=== PATIENT | female | born 1980 | race Caucasian/White ===

== ENCOUNTER 2018-11-10 00:19 | Emergency (ER) | payer OTHER, MEDICAID, SELFPAY ==
--- NOTE | 2018-11-10 00:21 | ED.PREGNANCY ---
HPI - General Chief complaint: OB/Uterine Contractions Stated complaint: about 6 weeks thinks miscarrying Time Seen by Provider: 11/10/18 00:20 Source: patient and family Mode of arrival: ambulatory Limitations: no limitations History of Present Illness HPI Narrative: 37-year-old female smoker presents with 2 days vaginal spotting and now heavier bleeding. Today she started having lower pelvic cramping. Last menstrual period was 1st week of September. She took a home test which were positive. She is a at 6 weeks by her own dates. She denies fever or chills. She denies dysuria, frequency. She is scheduled for elective AB in the morning Complaint: abdominal pain and vaginal bleeding Onset (ago): hour(s) Pain Consistency: constant Location: pelvis Severity: moderate Quality: Aching and Cramping Relieving factors: none Exacerbating factors: movement Patient : Yes Related Data Home Medications Medication Instructions Recorded Confirmed No Known Home Medications 11/10/18 11/10/18 Allergies Allergy/AdvReac Type Severity Reaction Status Date / Time acetaminophen [From Percocet] Allergy Unknown Verified 11/10/18 00:29 oxycodone [From Percocet] Allergy Unknown Verified 11/10/18 00:29 Penicillins Allergy Unknown Verified 11/10/18 00:29 Review of Systems Constitutional Denies chills, Denies fever(s), Denies lethargy and Denies weakness Eyes Denies change in vision, Denies eye discharge, Denies irritation and Denies loss of vision ENT Ears, Nose, Mouth, and Throat: Denies change in voice, Denies neck pain and Denies sore throat Cardiovascular Denies chest pain, Denies irregular heart rhythm, Denies lightheadedness, Denies palpitations, Denies dyspnea, Denies dyspnea on exertion and Denies orthopnea Respiratory Denies cough, Denies dyspnea, Denies dyspnea on exertion and Denies wheezing Gastrointestinal Gastrointestinal: Denies abdominal pain, Denies change in bowel habits, Denies diarrhea, Denies nausea and Denies vomiting Genitourinary Reports abnormal vaginal bleeding, Denies hematuria, Denies flank pain, Denies urinary incontinence and Denies urinary urgency Musculoskeletal Denies neck pain Integumentary/Breasts Denies pruritus, Denies erythema, Denies rash and Denies wounds Neurologic Denies confusion, Denies loss of vision and Denies weakness Psychiatric Denies anxiety, Denies confusion, Denies depression, Denies homicidal ideation and Denies suicidal ideation Endocrine Denies palpitations Hematologic/Lymphatic Denies easy bruising Allergic/Immunologic Denies wheezing PMFSH - Past Medical History 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 Normocephalic. No temporal or scalp tenderness. EYES: Pupils equal round and reactive. Extraocular motions intact. No scleral icterus. No injection or drainage. ENT: Nose without bleeding, purulent drainage or septal hematoma. Throat without erythema, tonsillar hypertrophy or exudate. Uvula midline. Airway patent. NECK: Trachea midline. No JVD or lymphadenopathy. Supple, nontender, no meningeal signs. CARDIOVASCULAR: Regular rate and rhythm without murmurs, gallops, or rubs. RESPIRATORY: Clear to auscultation. Breath sounds equal bilaterally. No wheezes, rales, or rhonchi. GASTROINTESTINAL: Abdomen soft, mild general tenderness, nondistended. No hepato-splenomegaly, or palpable masses. No guarding. EXTREMITIES: No clubbing, cyanosis, or edema. No joint tenderness, effusion, or edema noted. BACK: Nontender without deformity or crepitance. No flank tenderness. NEURO: AOx3. SKIN: No rash or erythema. Initial Vital Signs Initial Vital Signs: Vital Signs Temperature 97.8 F 11/10/18 00:22 Pulse Rate 110 H 11/10/18 00:22 Respiratory Rate 22 11/10/18 00:22 Blood Pressure 158/99 H 11/10/18 00:22 Pulse Oximetry 100 11/10/18 00:22 Course Orders Ordered: ED Orders 11/10/18 00:25 US OB <= 14 weeks fetus Stat 11/10/18 00:30 ABO RH Type Stat Ethanol (ETOH) Stat HCG Quantitative Stat Hemoglobin and Hematocrit Stat Vital Signs - 8 hr 11/10/18 00:22 11/10/18 01:43 Temperature 97.8 F Pulse Rate 110 H 84 Respiratory Rate 22 16 Blood Pressure 158/99 H 109/60 Pulse Oximetry 100 99 MDM - OB/Uterine Contractions Lab Data Result diagrams: 11/10/18 00:30 Lab Results 11/10/18 11/10/18 11/10/18 Range/Units 00:30 00:30 00:30 Hgb 13.1 (12.0-16.0) g/dL Hct 39.6 (36-46) % HCG, Quant 26.52 mIU/mL Ethyl Alcohol mg/dL Blood Type A Positive 11/10/18 Range/Units 00:30 Hgb (12.0-16.0) g/dL Hct (36-46) % HCG, Quant mIU/mL Ethyl Alcohol 185 mg/dL Blood Type Point of Care Testing Test Results Negative Urine Dip Bedside Urine Glucose Negative Bedside Urine Bilirubin - Negative Bedside Urine Ketone - Negative Urine Specific [place] 1.010 Bedside Urine Occult Blood +++ Bedside Urine pH 6.0 Bedside Urine Protein - Negative Bedside Urine Urobilinogen - Negative Bedside Urine Nitrite - Negative Bedside Urine Leukocytes - Negative Esterase Imaging Data Pelvic US: Radiologist's impression: No IUP MDM Narrative Medical decision making narrative: Multiple etiologies for patient's symptoms considered including: [Ectopic versus missed versus other] Patient's symptoms improved or duration of stay with above-stated therapies. Findings and discharge diagnosis discussed with patient/family followed by verbalization of understanding Return precautions discussed with patient/family whom verbalize understanding. Discharge Plan Departure Patient Disposition: Home Clinical Impression: Missed Discharge Date/Time: 11/10/18 01:45 Interventions: ED Discharge Assessment Last Done: 11/10/18 01:43 Instructions: DI for Miscarriage Activity Restrictions/Additional Instructions: *You have been diagnosed with [pelvic pain and bleeding in 1st trimester of . This is most likely a miscarriage however ectopic cannot be ruled out] *What to do: *Follow up with your infrastructure technician provider in 2-3 days, call for an appointment. Let them know you were seen in the Emergency Department and that we ask that you be seen in follow up *Return to ER if you should have any new, worsening or concerning symptoms, such as [worsening pain, bleeding through more than 1 pad per hour for multiple hours] Prescriptions: No Action No Known Home Medications RF: 0
[2018-11-10 00:22] VITALS: BP 158/99; PULSE 110; RESP 22; TEMP 36.6; O2SAT 100; BMI 22.7
--- NOTE | 2018-11-10 00:25 | DI.US.S_ITS ---
PROCEDURE: US PELVIC COMPLETE INDICATIONS: , BLEEDING TECHNIQUE: Real-time scanning was performed of the pelvic organs, with image documentation. Additional endovaginal scanning was necessary due to incomplete visualization of the adnexal and endometrial structures by transabdominal scanning. COMPARISON: None. FINDINGS: Transabdominal scanning: Limited scanning through the kidneys shows no hydronephrosis. No pathologic free abdominal or pelvic fluid. Endovaginal scanning: Uterus: Uterus is normal in size at 5.1 x 6.4 x 9.6 cm, anteverted. The endometrium measures 8.0 mm in combined thickness. There is a submucosal rounded hypoechoic structure to the right of midline measuring 6 x 6 x 7 mm, consistent with a very small fibroid. A small amount of material within the superior margin of the fundal portion of the endometrial canal is present, potentially blood clot but no definite focus of soft tissue with internal vascularity indicating retained products of conception is found. Ovaries: The right ovary is surgically absent according to the patient, the left ovary appears normal IMPRESSION: An intrauterine gestation is not seen. No sonographic evidence of ectopic is found. A slight amount of hypoechoic material within the fundal portion of the endometrial canal this is most consistent with a small amount of clot in this clinical circumstance. A subcentimeter subserosal uterine fibroid appears present centered to the right of midline. Dictated by: Brian Spencer M.D. on 11/10/2018 at 10:51 Approved by: Brian Spencer M.D. on 11/10/2018 at 10:54
[2018-11-10 00:47] LABS: Hematocrit 39.6 % (36-46); Hemoglobin 13.1 g/dL (12.0-16.0)
[2018-11-10 01:11] LABS: Ethanol (ETOH) 185 mg/dL
[2018-11-10 01:12] LABS: HCG Quantitative /Beta subunit 26.52 mIU/mL
[2018-11-10 01:43] VITALS: BP 109/60; PULSE 84; RESP 16; O2SAT 99
== END 2018-11-10 01:45 | disposition home or self-care (01) ==
PROVIDERS: Emergency Provider Emergency Medicine
DX: O02.1 Missed abortion (principal); Z3A.01 Less than 8 weeks gestation of pregnancy
CPT/HCPCS: 36415; 76801; 76817; 76830; 76856; 80320; 81003; 81025; 84702; 85014; 85018; 86900; 86901; 99282; 99283